=== PATIENT | male | born 1960 | race Caucasian/White ===

== ENCOUNTER 2017-01-13 18:25 | Emergency (ER) | payer MEDICAID ==
[~2017-01-13] VITALS: Ht 175.3 cm; Wt 95.3 kg
[2017-01-13] MEDS ORDERED: AUGMENTIN 875-1 EACH PO (19:27)
[2017-01-13] MEDS ORDERED: PREDNISONE 20MG20 MG PO (19:27)
[2017-01-13] MEDS ORDERED: PROMETHAZINE D118 ML PO (19:27)
--- NOTE | 2017-01-13 19:28 | Urgent Treatment Center Report ---
History of Present Issue Date/Time Seen by Provider 01/13/17 1859 Visit Reason Pt arrived:Walked Presenting Problem:PT C/O FEVER, COUGH, BODYACHE, PRESSURE ON BOTH EARS X2 WEEKS Location if Accident: Onset of symptoms date/time:/ or onset unknown for:MEDICAL HX UNKNOWN Have you (or family members/close friends) recently traveled outside the [place]? N If Yes, where/when: Have you had exposure to infectious disease within the past month? TB? Other? Specify: Here w/ c/o "bronchitis again". Hx of bronchitis annually. Only every smoked from [age] years old. 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 Same symptoms every years "at this time" and would go in to see PCP, Dr. Penaloza, for PCN and steroid shot "and within three days it was gone". Pt hoping to get the same today. Has not established a new PCP since Dr. penaloza's unexpected earlier this year. Mostly nonprod cough w/ occasional brown sputum x 2 weeks. has been trying to get pt to seek treatment but they both agree pt is stubborn. Instead he has continued to work 6 days a week. Robitussin helped initially "for about 4 days". Hasn't taken or tried anything else for cough, just tylenol/motrin occasionally for fever. Subjective fevers "off and on " x 2 weeks. Today symptoms have worsened. More SOA and wheezy then had been throughout weeks. Denies head symptoms "just the cough right off the bat". Source patient, family Exam Limitations no limitations ALLERGIES Coded Allergies: No Known Allergies (09/19/15) History Medical History General CAD? No Angina: No SC: No Hypertension? No Hyperlipidemia? No CHF? No DVT? No PE? No COPD? No Asthma? No Anemia? No GERD? No Gastric ulcers? No GI Bleed? No Hernia? No Thyroid Problems? No Hypothyroidism? No CVA? No Seizures? No Diabetes? No Renal Insuffiency? No UTI? No Stones? No GB Disease: No Nephritic Syndrome? No Asplenia? No Hepatitis? No Sickle Cell Disease? No Arthritis? No Migraines? No Cataracts? No Glaucoma? No MRSA? No HIV? No TB? No Anxiety? No Depression? No Cancer? No More? No Immunization HX DT/Tetanus > 10 Years Ago Surgical Hx Previous Surgery?Y BACK SURGERY Social History Smoking Hx Smoker: Never Smoker Tobacco: No Alcohol Alcohol: No Review of Systems All Other Systems Reviewed and Negative Constitutional see HPI, denies malaise, denies weakness Eyes denies drainage ENT denies: ear pain, nose discharge, nose congestion, throat pain. Respiratory see HPI Cardiovascular denies chest pain, denies palpitations Gastrointestinal denies no symptoms reported Musculoskeletal denies joint pain Skin denies rash Psychiatric/Neurological denies headache Physical Exam Vital Signs Vital Signs Date Time Temp Pulse Resp B/P Pulse O2 O2 Flow FiO2 Ox Delivery Rate 01/13 1838 100.2 105 20 136/89 98 General Appearance no apparent distress, frequent loud, harsh nonprod cough Eye Exam - bilateral eye normal exam Ear, Nose, Throat normal ENT inspection Neck non-tender, supple Respiratory Status Yes: trachea midline, chest symmetrical, non tender chest, non productive cough (freq, worse w/ deep breath). No: respiratory distress, use of accessory muscles, pain on inspiration, pain on expiration. Lung Sounds anterior: lungs clear. posterior: lungs clear. bilateral: lungs clear, decreased breath sounds (bases). Cardiovascular no peripheral edema, no murmur, tachycardia Neurologic alert, oriented x 3 Mental status normal mood/affect Skin intact, warm/dry, starla cheeks Lymphatic no adenopathy Medical Decision Making LABS/Meds/Orders Pt receiving controlled substance in ED? No Results/Orders Laboratory Tests 01/13/171839: Influenza Type A Ag NOT DETECTED, Influenza Type B Ag NOT DETECTED Current Medication Orders Sig/Leroy Start time Last Medication Dose Route Stop Time Status Admin Ceftriaxone Sodium 1 GM ONCE ONE 01/13 1915 DC 01/13 IM 01/13 Lidocaine HCl 0 ONCE ONE 01/13 1915 DC 01/13 IM 01/13 Methylprednisolone 125 MG ONCE ONE 01/13 1915 DC 01/13 Sodium Succinate IM 01/13 Ceftriaxone Sodium 0 .STK-MED ONE 01/13 1914 DC .ROUTE Lidocaine HCl 0 .STK-MED ONE 01/13 1914 DC .ROUTE Methylprednisolone 0 .STK-MED ONE 01/13 1914 DC Sodium Succinate .ROUTE Orders Procedure Date/time Status CHEST(2 VIEWS-NOT PORTABLE) 01/14 [address] [facility] FLU A,B 01/14 1840 Complete XRAY/CT/US XRAY/CT/US XRAY chest XR interpretation by reviewed by me (with Dr. Mendez, SHANDA ZABALA) Xray Results no acute findings Progress [facility] Progress Notes Date 01/13/17 Time 1929 Comment Cough "somewhat" improved since intially arrived. Still declines neb treatment and/or albuterol inhaler as well as further workup for fever to include labs. Does agrees to take the day off tomorrow to rest and if no better in 48 hours or gets any worse, will return. Departure Departure Time of Disposition 1932 Disposition DC Home or Self Care(routine) Clinical Impression Primary Impression: Acute bronchitis Qualifiers: Bronchitis organism: unspecified organism Qualified Code: J20.9 - Acute bronchitis, unspecified Secondary Impressions: Fever Qualifiers: Fever type: unspecified Qualified Code: R50.9 - Fever, unspecified Condition STABLE Referrals NO REFERRAL Due to the sudden passing of your family physician many months ago, we have provided you with a list of providers accepting patients. I would encourage you find him a new primary care provider and make an appt [facility] as it can take weeks to get a new patient appointment. In the meantime, follow up in the clinic or ER for new, worsening or persistent symptoms. 911 for difficulty breathing Patient Instructions DI for Acute Bronchitis, DI for Fever (Symptom) -- Adult Additional Instructions * start antibiotic. Be sure to complete entire prescription even if feeling better. * Monitor Temp. Tylenol every 4 hours as needed no more then 5 times a day or 4000mg in 24 hours and/or ibuprofen every 6 hours as needed no more then 3200mg in 24 hours (as long as your primary care doctor has told you that it is ok to take both) for fever/aches/pain. ER if fever no less than 101 despite tylenol and ibuprofen, if fever worsens AND if fever continues more then another 48 hours since starting medication. * humidifier/vaporizer/hot steamy shower * Discussed breathing treatment in clinic and inhaler for home to open airways and improve cough, wheezing, shortness of breath but you declined because they have never helped you in the past. BE SURE to follow up for worsening shortness of breath or if no improvement in 48 hours. * Mucinex during the day for your cough and cough suppressant only at night. Be sure to drink lots of water. Insurance may not cover a prescription of mucinex. Might be cheaper to get 400mg tablets and take 2 tablets morning, midday and evening all with lots of water. * Promethazine DM cough syrup will cause drowsiness. Use it only at night. No driving, operating machinery or caring for small children after taking it. * Start steroid tomorrow since you got a shot in the clinic. Helps with inflammation therefore, cough and wheezing. Follow directions on package. Rvwd side effects. Pt reports they have taken them before. YOU NEED rest to improve. LOTs of rest and fluids. No work tomorrow, Tuesday. Discharge Counseling Counseled pt/family regarding diagnosis, test results, medications/RX, home care, follow up needs Prescriptions Current Visit Scripts Amoxicillin/Potassium Clav (Augmentin 875-125 Tablet) 1 EACH PO BID #20 TAB Prednisone (Prednisone 20MG) 20 MG PO BID #10 TAB PROMETHAZINE/DEXTROMETHORPHAN (Promethazine-Dm Syrup) 5-10 ML PO QHSP PRN cough #90 ML will cause drowsiness at 1950
[2017-01-13 19:53] VITALS: BP 136/89
--- NOTE | 2017-01-13 21:07 | RADIOLOGY REPORT PS360 ---
CHEST(2 VIEWS-NOT PORTABLE) Ordering physician: MEGAN LUCIO APRN Age: 56 years Male INDICATION: chest symptomsCOUGH AND CONGESTION AND FEVER X2 WEEKS cough congestion bronchitis symptoms. PROCEDURE: CHEST(2 VIEWS-NOT PORTABLE) FINDINGS: Previous chest film from 09/19/2015 & 08/01 CXR used as comparison . There is been no significant interval change. Lungs well expanded and clear with nothing definitely acute. No pneumothorax. No pleural effusion. Heart normal size. Normal pulmonary vascularity. Hilar and mediastinal structures appear satisfactory. Chest wall unremarkable. T-spine intact. IMPRESSION ----- . Stable chest nothing definitely acute. No active disease
== END 2017-01-13 19:53 | disposition home or self-care (01) ==
LOC: UTC 18:25
DX: J20.9 Acute bronchitis, unspecified (principal)